=== PATIENT | female | born 1975 | race Caucasian/White ===

== ENCOUNTER 2016-09-22 16:21 | Emergency (ER) | payer MEDICAID ==
[~2016-09-22] VITALS: Ht 167.6 cm; Wt 54.5 kg
[~2016-09-22 16:21] MED LIST: BUSPAR DIVIDOSE15 MG PO; CEPHALEXIN500 M1 PO; NORCO 325 MG-51 TAB PO
[2016-09-22 16:23] VITALS: TEMP 98.1
[2016-09-22] MEDS ORDERED: DEPO-MEDRO20 MG/1 ML (16:27)
[2016-09-22] MEDS ORDERED: MOTRIN 800800 MG/TAB PO (17:20)
[2016-09-22 17:28] VITALS: BP 132/90; PULSE 90
== END 2016-09-22 17:29 | disposition home or self-care (01) ==
LOC: COL.ER 16:21
DX: S89.91XA Unspecified injury of right lower leg, initial encounter (principal); F41.9 Anxiety disorder, unspecified; F17.210 Nicotine dependence, cigarettes, uncomplicated; Z98.890 Other specified postprocedural states; W22.8XXA Striking against or struck by other objects, initial encounter; Y92.009 Unspecified place in unspecified non-institutional (private) residence as the place of occurrence of the external cause
CPT/HCPCS: L1830

== ENCOUNTER 2017-03-07 18:10 | Emergency (ER) | payer SELFPAY ==
[~2017-03-07] VITALS: Ht 167.6 cm; Wt 56.8 kg
[~2017-03-07 18:10] MED LIST changes: +DEPO-MEDRO20 MG/1 ML; +MOTRIN 800800 MG/TAB PO
[2017-03-07 18:19] VITALS: TEMP 98.4
[2017-03-07] MEDS ORDERED: PREDNISONE20 MG PO (18:42)
[2017-03-07] MEDS ORDERED: NORCO 325 MG-51 TAB PO (18:42)
[2017-03-07] MEDS ORDERED: VALIUM 5MG T5 MG/TAB PO (18:42)
[2017-03-07 18:57] VITALS: BP 137/84; PULSE 73
== END 2017-03-07 18:57 | disposition home or self-care (01) ==
LOC: COL.ER 18:10
DX: M54.14 Radiculopathy, thoracic region (principal); F17.210 Nicotine dependence, cigarettes, uncomplicated
CPT/HCPCS: J7512

== ENCOUNTER 2019-10-03 17:11 | Emergency (ER) | payer SELFPAY ==
[~2019-10-03] VITALS: Ht 167.6 cm; Wt 61.4 kg
[~2019-10-03 17:11] MED LIST changes: +PREDNISONE20 MG PO; +VALIUM 5MG T5 MG/TAB PO
[2019-10-03 17:25] VITALS: BP 167/105; PULSE 107; TEMP 98.3
[2019-10-03] MEDS ORDERED: VALIUM 5MG T5 MG/TAB PO (17:54)
[2019-10-03] MEDS ORDERED: NORCO 325 MG-51 TAB PO (17:54)
[2019-10-03] MEDS ORDERED: PREDNISONE20 MG PO ×2 (17:56→17:58)
== END 2019-10-03 18:48 | disposition home or self-care (01) ==
LOC: COL.ER 17:11
DX: M54.2 Cervicalgia (principal); M54.10 Radiculopathy, site unspecified; M54.6 Pain in thoracic spine
CPT/HCPCS: J1885

== ENCOUNTER → 2020-03-11 | Outpatient (CLI) | payer SELFPAY | LOC: MC.RAD 14:33 | DX: Z12.31 Encounter for screening mammogram for malignant neoplasm of breast (principal) ==

== ENCOUNTER → 2020-06-11 | Outpatient (CLI) | payer SELFPAY | LOC: COL.RAD 13:12 | DX: R10.2 Pelvic and perineal pain (principal); Z97.5 Presence of (intrauterine) contraceptive device ==

== ENCOUNTER 2021-09-27 20:55 | Emergency (ER) | payer SELFPAY ==
[~2021-09-27] VITALS: Ht 167.6 cm; Wt 63.6 kg
[2021-09-27 21:49] LABS: BASO % 0.4 % (0.0-2.0); EOS # 0.1 K/mm3 (0.0-0.7); EOS % 0.5 % (0.0-4.0); GRAN # 7.3 K/mm3 (1.4-6.5); GRAN % 73.5 % (42.2-75.2); HEMATOCRIT 38.6 % (37.0-47.0); HEMOGLOBIN 12.8 g/dl (12.5-16.0); LYMPH # 1.8 K/mm3 (1.2-3.4); LYMPH % 18.5 % (20.0-51.0); MEAN CELL VOLUME 92 fl (80.0-100.0); MEAN CORPUSCULAR HEMOGLOBIN 30 pg (27-31); MEAN CORPUSCULAR HGB CONC 33 g/dl (33.0-37.0); MEAN PLATELET VOLUME 8.9 fl (7.4-10.4); MONO # 0.7 K/mm3 (0.1-0.6); MONO % 6.8 % (1.7-9.3); PLATELET COUNT 286 K/mm3 (130-400); RED BLOOD COUNT 4.21 M/mm3 (4.10-5.30); REDCELL DISTRIBUTION WIDTH-CV 12.6 % (11.5-14.5)
[2021-09-27 22:05] LABS: CALCIUM 9.4 mg/dL (8.4-10.2); CREATININE, serum 0.77 mg/dL (0.57-1.11); POTASSIUM 3.8 mmol/L (3.5-4.5)
[2021-09-28 00:15] VITALS: BP 136/100; PULSE 74; TEMP 97.9
== END 2021-09-28 00:15 | disposition short-term general hospital (02) ==
LOC: COL.ER 20:55
PROVIDERS: Emergency Medicine
DX: H16.032 Corneal ulcer with hypopyon, left eye (principal); F17.200 Nicotine dependence, unspecified, uncomplicated; Z20.822 Contact with and (suspected) exposure to COVID-19; Z28.310 Unvaccinated for COVID-19; X58.XXXA Exposure to other specified factors, initial encounter